=== PATIENT | male | born 1960 | race Caucasian/White ===

== ENCOUNTER → 2016-12-26 | Outpatient (CLI) | payer BC ==
--- NOTE | ~2016-12-26 | EKG ---
[address] [employer] [address] ELECTROCARDIOGRAM REPORT Name: JOSELYN TOMLINSON Ilana [id number] Admission: 12/26/16 Attend Phys: Rachelle Castillo MD Discharge: Date of : 58 Report #: [id number] THIS REPORT FOR: //name// [facility] Test Date: 2016-12-26 Test Time: 10:16:13 Pat Name: JOSELYN TOMLINSON Department: Room: Gender: Beater Operator: Elizabeth GUTIÉRREZ : 1960 Requested By: Rachelle Castillo Order Number: [id number] MD: Taqueria Orozco Measurements Intervals [place] Rate: 76 P: 3 ND: 210 QRS: -33 QRSD: 105 T: 12 QT: 393 QTc: 442 Interpretive Statements Sinus rhythm Prolonged ND interval Left ventricular hypertrophy No previous ECG available for comparison Electronically Signed On 12-27-2016 8:53:02 CDT by Taqueria Orozco [email or web address] <ELECTRONICALLY SIGNED> By: Taqueria Orozco MD, [facility] 12/27/16 [id number] Taqueria Orozco MD, FAC /EPI
== END ==
LOC: CV 09:47
DX: Z01.818 Encounter for other preprocedural examination (principal); I10 Essential (primary) hypertension